=== PATIENT | male | born 1950 | race Caucasian/White ===

== ENCOUNTER 2017-04-14 10:44 | Outpatient (CLI) | payer OTHER, MEDICARE ==
--- NOTE | 2017-04-14 13:48 | DIAGNOSTIC IMAGING REPORT ---
PROCEDURE: CT ABDOMEN WITHOUT CONTRAST INDICATION: RE CHECK ADRENAL ADENOMA TECHNIQUE: Axial scans with coronal and sagittal re-formations. COMPARISON: CT abdomen 07/20/2015 aleta FINDINGS: Stable 2.3 cm left adrenal mass measuring -16 Hounsfield units. 1.9 cm partially calcified gallstone. No change in the two left hepatic lobe low-density lesions, largest 5 mm, suggestive of cysts. Pancreas, spleen and right adrenal gland are normal. Minor atherosclerosis of the aorta. Mild descending colon diverticulosis. Lung base are clear. Heart size is normal. Mild degenerative changes of the spine. IMPRESSION: 1. 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 No additional surveillance needed. 2. 1.9 cm gallstone 3. Mild descending colon diverticulosis.
== END 2017-04-14 23:00 ==
LOC: CT SRH 10:44
DX: D35.02 Benign neoplasm of left adrenal gland (principal)

== ENCOUNTER 2017-05-02 10:23 | Emergency (ER) | payer OTHER, MEDICARE ==
--- NOTE | 2017-05-02 11:35 | DIAGNOSTIC IMAGING REPORT ---
PROCEDURE: XR FOOT 3 VIEWS - RIGHT INDICATION: PAIN TECHNIQUE: Three views. COMPARISON: None. FINDINGS: No of fracture or dislocation. Hallux valgus. IMPRESSION: 1. Hallux valgus. No fracture or dislocation.
--- NOTE | 2017-05-02 12:11 | ED CLINICAL REPORT ---
Clinical Report - Physicians/Mid Levels [facility] [address] [place] [address] 05/02/2017 10:23 Patient: FELY TUCKER Time Seen: 1032. Arrived- By private vehicle. Historian- patient. HISTORY OF PRESENT ILLNESS Chief Complaint: Injury to the right foot. The injury happened last night. (may have stepped wrong). Occurred at home. Patient is experiencing moderate pain. Patient denies injury to the head or neck. No other injury. (states he was brushing his teeth and standing on the rug with a slight height difference with the floor.). REVIEW OF SYSTEMS No suspected foreign body or skin laceration. All systems otherwise negative, except as recorded above. PAST HISTORY See nurses notes. Tetanus immunization status is up-to-date. Medications: Aspirin Oral. Lastartan 100/25. Atenolol Oral (Tablet 50 mg) 1 tablet, 2x a day. Allergies: No Known Drug Allergy. SOCIAL HISTORY Never smoker. No alcohol use or drug use. Is a local resident. ADDITIONAL NOTES The nursing notes have been reviewed. PHYSICAL EXAM Vital Signs: 05/02/2017 10:35 BP: 133/86. HR: 80. RR: 20. O2 saturation: 98%. Temp: 98 F. Oxygen saturation normal. Appearance: Alert. Oriented X3. No acute distress. Eyes: Pupils equal, round and reactive to light. Eyes normal inspection. CVS: Normal heart rate and rhythm. Heart sounds normal. Pulses normal. Respiratory: No respiratory distress. Breath sounds normal. Chest nontender. Abdomen: No visible injury. Soft and nontender. Bowel sounds normal. Back: Normal inspection. No tenderness. ROM normal. Skin: Skin intact. Skin warm and dry. Extremities: (mild tenderness over the navicular bone. No tenderness at the base of the fifth metatarsal or malleolus. Sensation is decreased on the right foot however still generally intact. Patient is able to wiggle toes and flex and extend at the ankle however is decreased compared to the contralateral side.). Neuro, Vascular and Tendons: Vascular status intact. Sensation intact. Motor intact. Tendon function intact. LABS, X-RAYS, AND EKG Rt Foot X-ray: (PROCEDURE: XR FOOT 3 VIEWS - RIGHT INDICATION: PAIN TECHNIQUE: Three views. COMPARISON: None. FINDINGS: No of fracture or dislocation. Hallux valgus. IMPRESSION: 1. Hallux valgus. No fracture or dislocation.). Views: 3 view foot series. The X-rays were independently viewed by me and interpreted by the radiologist. The X-rays were discussed with the radiologist (via pacs). PROGRESS AND PROCEDURES Course of Care: the patient is a 66-year-old male with no pertinent past medical historywho presents for a vaginal right-sided foot pain. Patient with seemingly minimal trauma. Patient apparently had a visit here in the emergency department for similar episode that occurred to his left foot. No signs of injury to the back. No tenderness to the back noted on examination. No signs of infection at this time. Patient will be evaluated with radiographs for evaluation of potential osseous have a mallet or dislocation. Patient could have a avulsion fracture. Patient is agreeable to the treatment plan. Pain medication has been offered. The patient's workup was unremarkable for any signs of acute osseous abnormalities. Had a long discussion with the patient and the patient's significant other in regards to atraumatic types of foot pain. Discussed things such as arthritis, gout,and radicular type pain. Because the patient does not have any signs of fracture at this time, do not feel patient requires further emergency workup for evaluation. Patient will be encouraged to follow up with her primary care for further workup and monitoring of the injury. Discussed with the patient and the patient's spouse there workup here in the emergency department including diagnosis, home care, follow-up, and return precautions. All questions have been answered. The patient expressed understanding of these instructions and Was agreeable to them. Repeat examination continues to be reassuring. No neurovascular compromise. Disposition: Discharged. Condition: good. CLINICAL IMPRESSION 05/02/2017 10:35 BP: 133/86. HR: 80. RR: 20. O2 saturation: 98%. Temp: 98 F. Blood pressure normal. Oxygen saturation normal. Acute pain in the right lower extremity (foot). INSTRUCTIONS Warnings: GENERAL WARNINGS: Return or contact your physician immediately if your condition worsens or changes unexpectedly, if not improving as expected, or if other problems arise. Specifically return if pain, vomiting, bleeding, breathing difficulty or fever. Your Current Medications: CONTINUE TAKING THE FOLLOWING MEDICATIONS: Aspirin Oral. Atenolol Oral : Tablet 50 mg, 1 tablet 2x a day. Lastartan* : 100/25. OTC Medications: Acetaminophen (available over the counter): take according to label instructions. Motrin (available over the counter): take according to label instructions. Follow-up: Return to the emergency department as needed. Follow up with your doctor in three days. Reason for referral: recheck today's concerns. Summary of care provided to patient via paper. Screening today revealed the patient's blood pressure to be in the normal range. The patient should follow up with a primary care provider for blood pressure management. Understanding of the discharge instructions verbalized by patient. (Electronically signed by Nima Melton Dr. 05/03/2017 9:53)
--- NOTE | 2017-05-02 12:11 | ED ORDER SUMMARY ---
..... Patient: FELY TUCKER OrderSheet [facility] VisitID: [id number] [place] [address] 66y, M Registration Date/Time: 05/02/2017 ORDER SHEET Weight: 126.5 kg (stated) Allergies: No Known Drug Allergy GENERAL ORDERS: Foot 3V Right Urgent (10:44 05/02/2017 William Hamm) (Ack 10:54 Efraín Black) (11:01 [place] [id number]) MEDICATION ORDERS: IV FLUIDS: ORDER SHEET NOTES: [Electronically signed by Siri Lanza R.N. (14:19 05/02/2017)] [Electronically signed by Nima Melton Dr. (09:53 05/03/2017)] [Electronically locked/signed by Siri Lanza R.N. (14:19 05/02/2017)]
--- NOTE | 2017-05-02 12:11 | ED NURSING NOTES ---
Clinical Report - Nurses [facility] [address] [place] [address] 05/02/2017 10:23 Patient: FELY TUCKER TRIAGE Acuity: LEVEL 4. Chief Complaint: RIGHT LOWER EXTREMITY PAIN. Alert. No acute distress. SEPSIS SCREEN: Sepsis Screen. Negative (no infection suspected/documented). --10:45 Siri Lanza R.N. 10:35 05/02/17. BP: 133/86. HR: 80. RR: 20. O2 saturation: 98% on room air. Temp: 98 F (oral). --10:45 Siri Lanza R.N. Weight: 126.5 kg stated. Height/Length: 73 inches Per Patient. BMI: 36.8. --10:43 Siri Lanza R.N. Medications Atenolol Oral (Tablet 50 mg) 1 tablet, 2x a day. --10:43 Siri Lanza R.N. Lastartan 100/25. --10:43 Siri Lanza R.N. Aspirin Oral. --10:43 Siri Lanza R.N. Medication/allergy information source: the patient. --10:45 Siri Lanza R.N. Allergies No Known Drug Allergy. --10:43 Siri Lanza R.N. History Arrived by private vehicle. Historian: patient. Accompanied by spouse. Primary physician (Sana). An injury may have occurred. This occurred last night. Provoking / relieving factors: worsened by movement to the right, standing and walking. 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 SOCIAL HX: Smoker- current status unknown (chews tobacco). No alcohol use or drug use. NUTRITIONAL RISK ASSESSMENT: The nutritional risk assessment revealed no deficiencies. FUNCTIONAL ASSESSMENT: Functional assessment: no impairments noted. LEARNING NEEDS ASSESSMENT: The learning needs assessment revealed no barriers. FALL RISK ASSESSMENT: Fall risk assessment completed. Risk factors identified include patient age greater than 65 years and impairment of mobility. Fall interventions initiated. Patient identified as a fall risk. Call light in reach of patient. SKIN INTEGRITY ASSESSMENT: Skin integrity risk assessment completed. No skin integrity risk identified. --10:45 Siri Lanza R.N. PROBLEMS: Lumbar Radiculopathy. Heart Disease. Urinary Calculi. Hypertension. Heart issues. Hard of hearing. --10:44 Siri Lanza R.N. ADDITIONAL SURGERIES: Back Surgery. Knee Surgery. Neck Surgery. Tooth extraction. --10:44 Siri Lanza R.N. Assessment GENERAL / NEURO / PSYCH: Alert. Oriented X 4. Appears in no acute distress. Christa Coma Scale: 15- eyes open spontaneously (4); best verbal response- oriented x 4 (5); best motor response- obeys commands (6). Patient appears calm and cooperative. RESPIRATORY: Respirations not labored. CVS: Capillary refill less than 2 seconds. GI / : Abdomen soft and nontender. SKIN: Mucous membranes are pink. Skin is warm and dry. --10:45 Siri Lanza R.N. Interventions ID band on patient. To treatment room. --10:45 Siri Lanza R.N. PHYSICAL ASSESSMENT 10:40 05/02/17. To room via wheelchair. GENERAL / NEURO / PSYCH: Oriented X 4. Alert. Appears in no acute distress. EXTREMITIES: Extremity pulses are within normal limits. Neuro-vascular status intact to the extremity. No lower extremity edema. SKIN: Skin intact. Skin is warm and dry. --10:40 Siri Lanza R.N. NURSING PROGRESS NOTES 10:39 05/02/17. Patient gowned. Two patient identifiers checked. Call light placed in reach. Side rails up x 1. Bed placed in lowest position. Brakes of bed on. Patient ready for evaluation- chart flagged and ED physician notified. --10:39 Siri Lanza R.N. 11:01 05/02/17. ( Portable x-ray performed in room.). --11:02 Siri Lanza R.N. DISPOSITION / DISCHARGE Departure time: 12:15 May 02 2017. Condition at departure: improved and stable. No learning barriers present. Discharge instructions provided and reviewed with the patient. Patient verbalized understanding. Written instructions provided in Korean. The patient was discharged by the physician. He was discharged home and accompanied by spouse. He left the Emergency Department ambulatory and via private vehicle. Spouse driving. --14:19 Siri Lanza R.N. 14:18 05/02/17. BP: 120/73. HR: 72. RR: 16. O2 saturation: 98% on room air. Temp: 98.2 F. --14:19 Siri Lanza R.N. Locked/Released at 05/02/2017 14:19 by Siri Lanza R.N.
--- NOTE | 2017-05-02 12:11 | ED NURSING NOTES ---
Clinical Report - Nurses [facility] [address] [place] [address] 05/02/2017 10:23 Patient: FELY TUCKER TRIAGE Acuity: LEVEL 4. Chief Complaint: RIGHT LOWER EXTREMITY PAIN. Alert. No acute distress. SEPSIS SCREEN: Sepsis Screen. Negative (no infection suspected/documented). --10:45 Siri Lanza R.N. 10:35 05/02/17. BP: 133/86. HR: 80. RR: 20. O2 saturation: 98% on room air. Temp: 98 F (oral). --10:45 Siri Lanza R.N. Weight: 126.5 kg stated. Height/Length: 73 inches Per Patient. BMI: 36.8. --10:43 Siri Lanaz R.N. Medications Atenolol Oral (Tablet 50 mg) 1 tablet, 2x a day. --10:43 Siri Lanza R.N. Lastartan 100/25. --10:43 Siri Lanza R.N. Aspirin Oral. --10:43 Siri Lanza R.N. Medication/allergy information source: the patient. --10:45 Siri Lanza R.N. Allergies No Known Drug Allergy. --10:43 Siri Lanza R.N. History Arrived by private vehicle. Historian: patient. Accompanied by spouse. Primary physician (Sana). An injury may have occurred. This occurred last night. Provoking / relieving factors: worsened by movement to the right, standing and walking. 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 SOCIAL HX: Smoker- current status unknown (chews tobacco). No alcohol use or drug use. NUTRITIONAL RISK ASSESSMENT: The nutritional risk assessment revealed no deficiencies. FUNCTIONAL ASSESSMENT: Functional assessment: no impairments noted. LEARNING NEEDS ASSESSMENT: The learning needs assessment revealed no barriers. FALL RISK ASSESSMENT: Fall risk assessment completed. Risk factors identified include patient age greater than 65 years and impairment of mobility. Fall interventions initiated. Patient identified as a fall risk. Call light in reach of patient. SKIN INTEGRITY ASSESSMENT: Skin integrity risk assessment completed. No skin integrity risk identified. --10:45 Siri Lanza R.N. PROBLEMS: Lumbar Radiculopathy. Heart Disease. Urinary Calculi. Hypertension. Heart issues. Hard of hearing. --10:44 Siri Lanza R.N. ADDITIONAL SURGERIES: Back Surgery. Knee Surgery. Neck Surgery. Tooth extraction. --10:44 Siri Lanza R.N. Assessment GENERAL / NEURO / PSYCH: Alert. Oriented X 4. Appears in no acute distress. Christa Coma Scale: 15- eyes open spontaneously (4); best verbal response- oriented x 4 (5); best motor response- obeys commands (6). Patient appears calm and cooperative. RESPIRATORY: Respirations not labored. CVS: Capillary refill less than 2 seconds. GI / : Abdomen soft and nontender. SKIN: Mucous membranes are pink. Skin is warm and dry. --10:45 Siri Lanza R.N. Interventions ID band on patient. To treatment room. --10:45 Siri Lanza R.N. PHYSICAL ASSESSMENT 10:40 05/02/17. To room via wheelchair. GENERAL / NEURO / PSYCH: Oriented X 4. Alert. Appears in no acute distress. EXTREMITIES: Extremity pulses are within normal limits. Neuro-vascular status intact to the extremity. No lower extremity edema. SKIN: Skin intact. Skin is warm and dry. --10:40 Siri Lanza R.N. NURSING PROGRESS NOTES 10:39 05/02/17. Patient gowned. Two patient identifiers checked. Call light placed in reach. Side rails up x 1. Bed placed in lowest position. Brakes of bed on. Patient ready for evaluation- chart flagged and ED physician notified. --10:39 Siri Lanza R.N. 11:01 05/02/17. ( Portable x-ray performed in room.). --11:02 Siri Lanza R.N. DISPOSITION / DISCHARGE Departure time: 12:15 May 02 2017. Condition at departure: improved and stable. No learning barriers present. Discharge instructions provided and reviewed with the patient. Patient verbalized understanding. Written instructions provided in Indonesian. The patient was discharged by the physician. He was discharged home and accompanied by spouse. He left the Emergency Department ambulatory and via private vehicle. Spouse driving. --14:19 Siri Lanza R.N. 14:18 05/02/17. BP: 120/73. HR: 72. RR: 16. O2 saturation: 98% on room air. Temp: 98.2 F. --14:19 Siri Lanza R.N. Locked/Released at 05/02/2017 14:19 by Siri Lanza R.N.
--- NOTE | 2017-05-02 12:11 | ED ORDER SUMMARY ---
..... Patient: FELY TUCKER OrderSheet [facility] VisitID: [id number] [place] [address] 66y, M Registration Date/Time: 05/02/2017 ORDER SHEET Weight: 126.5 kg (stated) Allergies: No Known Drug Allergy GENERAL ORDERS: Foot 3V Right Urgent (10:44 05/02/2017 William Hamm) (Ack 10:54 Efraín Black) (11:01 [place] [id number]) MEDICATION ORDERS: IV FLUIDS: ORDER SHEET NOTES: [Electronically signed by Siri Lanza R.N. (14:19 05/02/2017)] [Electronically signed by Nima Melton Dr. (09:53 05/03/2017)] [Electronically locked/signed by Siri Lanza R.N. (14:19 05/02/2017)]
--- NOTE | 2017-05-03 09:53 | ED MED RECONCILIATION SUMMARY ---
Patient: FELY TUCKER Medication Reconciliation Report [facility] VisitID: [id number] [address] [place] [address] 66y, M Registration Date/Time: 05/02/2017 Weight: 126.5 kg Height/Length: 73 in. BMI: 36.8 ALLERGIES: No Known Drug Allergy The patient's Home Medications are listed below: CONTINUE TAKING THE FOLLOWING MEDICATIONS: Aspirin Oral Atenolol Oral (50 mg) 1 tablet, 2x a day Lastartan / The source(s) of the original Home Medication information: patient The following Medications were given to the patient in the Emergency Department: None. The following Medications were prescribed to the patient: Acetaminophen (available over the counter): take according to label instructions. -- Nima Melton Dr. Motrin (available over the counter): take according to label instructions. -- Nima Melton Dr.
--- NOTE | 2017-05-03 09:53 | ED MAR SUMMARY ---
..... Medication Administration Record [facility] [address] [place], [place] [id number] Patient: FELY TUCKER Visit ID: [id number] 66y, M Weight: 126.5 kg Height/Length: 73 in BMI: 36.8 ALLERGIES: No Known Drug Allergy
--- NOTE | 2017-05-03 09:53 | ED MAR SUMMARY ---
..... Medication Administration Record [facility] [address] [place], [place] [id number] Patient: FELY TUCKER Visit ID: [id number] 66y, M Weight: 126.5 kg Height/Length: 73 in BMI: 36.8 ALLERGIES: No Known Drug Allergy
--- NOTE | 2017-05-03 09:53 | ED MED RECONCILIATION SUMMARY ---
Patient: FELY TUCKER Medication Reconciliation Report [facility] VisitID: [id number] [address] [place] [address] 66y, M Registration Date/Time: 05/02/2017 Weight: 126.5 kg Height/Length: 73 in. BMI: 36.8 ALLERGIES: No Known Drug Allergy The patient's Home Medications are listed below: CONTINUE TAKING THE FOLLOWING MEDICATIONS: Aspirin Oral Atenolol Oral (50 mg) 1 tablet, 2x a day Lastartan / The source(s) of the original Home Medication information: patient The following Medications were given to the patient in the Emergency Department: None. The following Medications were prescribed to the patient: Acetaminophen (available over the counter): take according to label instructions. -- Nima Melton Dr. Motrin (available over the counter): take according to label instructions. -- Nima Melton Dr.
--- NOTE | 2017-05-03 09:53 | ED DISCHARGE INSTRUCTIONS ---
Patient: FELY TUCKER General Instructions [facility] VisitID: [id number] [place] [address] 66y, M Registration Date/Time: 05/02/2017 05/02/2017 10:35 BP: 133/86. HR: 80. RR: 20. O2 saturation: 98%. Temp: 98 F. Blood pressure normal. Oxygen saturation normal. Acute pain in the right lower extremity (foot). INSTRUCTIONS Warnings: GENERAL WARNINGS: Return or contact your physician immediately if your condition worsens or changes unexpectedly, if not improving as expected, or if other problems arise. Specifically return if pain, vomiting, bleeding, breathing difficulty or fever. Your Current Medications: CONTINUE TAKING THE FOLLOWING MEDICATIONS: Aspirin Oral. Atenolol Oral : Tablet 50 mg, 1 tablet 2x a day. Lastartan* : 100/25. OTC Medications: Acetaminophen (available over the counter): take according to label instructions. Motrin (available over the counter): take according to label instructions. Follow-up: Return to the emergency department as needed. Follow up with your doctor in three days. Reason for referral: recheck today's concerns. Summary of care provided to patient via paper. Screening today revealed the patient's blood pressure to be in the normal range. The patient should follow up with a primary care provider for blood pressure management. Understanding of the discharge instructions verbalized by patient. ADDITIONAL INFORMATION Pain, Uncertain Cause [Acute] Pain is the bodys way of calling attention to a problem. Pain can be caused by many conditions - some minor, some serious. In your case, we were not able to find the exact cause for your pain. However, at this time there is no sign of any serious or life-threatening illness causing your pain. Sometimes more tests will be needed to determine the cause. Other times, just allowing more time to pass will either make it clear what the problem is, or the pain will go away by itself. Home Care: You may use acetaminophen (Tylenol) or ibuprofen (Motrin, Advil) to control pain, unless another medicine was prescribed. [NOTE: If you have chronic liver or kidney disease or ever had a stomach ulcer or GI bleeding, talk with your doctor before using these medicines.] Follow Up with your doctor or as advised by our staff. Get Prompt Medical Attention if any of the following occur: Changes in the pattern of your pain Appearance of new symptoms Fever of 100.4F (38C) or higher, or as directed by your healthcare provider You have been given the following additional information: Pain, Uncertain Cause (Acute) (Electronically signed by Nima Melton Dr. 05/03/2017 9:53)
== END 2017-05-02 12:15 | disposition home or self-care (01) ==
LOC: ED SRH 10:23
DX: M79.671 Pain in right foot (principal); X58.XXXA Exposure to other specified factors, initial encounter; Y93.9 Activity, unspecified; Y92.019 Unspecified place in single-family (private) house as the place of occurrence of the external cause; Y99.9 Unspecified external cause status; I10 Essential (primary) hypertension; Z79.82 Long term (current) use of aspirin; Z79.899 Other long term (current) drug therapy

== ENCOUNTER 2017-06-06 10:11 | Outpatient (CLI) | payer OTHER, MEDICARE ==
--- NOTE | 2017-06-06 11:14 | DIAGNOSTIC IMAGING REPORT ---
PROCEDURE: CT CERVICAL SPINE W/O CONTRAST INDICATION: CERVICAL RADICULOPATHY TECHNIQUE: Noncontrast axial images with sagittal and coronal reformations. COMPARISON: None. FINDINGS: There is spondylosis with bilateral foraminal narrowing at C4-5. Patient has had a previous fusion at C5-6. No evidence of an acute process or fracture. Alignment is normal. IMPRESSION: 1. 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
== END 2017-06-06 23:00 ==
LOC: CT SRH 10:11
DX: M47.812 Spondylosis without myelopathy or radiculopathy, cervical region (principal); M54.12 Radiculopathy, cervical region